=== PATIENT | male | born 1965 | race Caucasian/White ===

== ENCOUNTER 2016-12-22 14:41 | Emergency (ER) | payer MEDICARE, OTHER ==
[~2016-12-22] VITALS: Ht 180.3 cm; Wt 95.9 kg
[~2016-12-22 14:41] MED LIST: DARU400T PO; DIPH-654 PO; GABA-531 PO; LORA1TAB3 PO; MULT1CAP32 PO; PROP10TA72 PO; RITO100C PO; SILD50TA PO; SUMA100T PO; TRUVT PO; VENL-68 PO; VICOT PO
[2016-12-22] MEDS ORDERED: GABA-531 PO (14:50)
[2016-12-22] MEDS ORDERED: HIV PO (14:50)
[2016-12-22] MEDS ORDERED: antihypertensive PO (14:50)
[2016-12-22 16:13] LABS: BASOPHILS % (AUTO) 1.5 % (0.0-2.0); EOSINOPHILS % (AUTO) 4.7 % (1.0-6.0); HEMATOCRIT 40.3 % (41-53); HEMOGLOBIN 13.3 g/dL (13.5-17.5); LYMPHOCYTES # (AUTO) 1.9 K/uL (1.0-4.8); LYMPHOCYTES % (AUTO) 32.5 % (22.0-44.0); MEAN CORPUSCULAR HEMOGLOBIN 27.9 pg (26.0-34.0); MEAN CORPUSCULAR HGB CONC 33.1 G/dL (31.0-37.0); MEAN CORPUSCULAR VOLUME 84 fL (80-100); MONOCYTES # (AUTO) 0.7 K/uL (0.1-1.0); MONOCYTES % (AUTO) 11.8 % (2.0-9.0); NEUTROPHILS # (AUTO) 2.9 K/uL (1.8-7.7); NEUTROPHILS % (AUTO) 49.5 % (40.0-70.0); PLATELET COUNT (AUTO) 436 K/uL (150-450); RED BLOOD CELL COUNT(AUTO) 4.78 MIL/uL (4.50-5.90); RED CELL DISTRIBUTION WIDTH 14.1 % (11.5-14.5); WHITE BLOOD COUNT (AUTO) 5.9 K/uL (4.5-11.0)
[2016-12-22 16:22] LABS: ANION GAP 9 mmol/L (8-16); CARBON DIOXIDE 27 mmol/L (22-29); CHLORIDE 100 mmol/L (98-107); CREATININE 1.01 mg/dL (0.60-1.30); GLOMERULAR FILTR. RATE CALC > 60 mL/min (>60); SODIUM SERUM 136 mmol/L (136-145); UREA NITROGEN, BLOOD 18 mg/dL (7-18)
[2016-12-22 16:41] LABS: INR 1.1 (0.9-1.1); PROTHROMBIN TIME 11.3 SEC (9.4-11.6)
[2016-12-22 16:45] LABS: ALANINE AMINOTRANSFERASE 23 U/L (12-78); ALBUMIN 4.1 g/dL (3.4-5.0); ASPARTATE AMINOTRANSFERASE 16 U/L (15-37); BILIRUBIN,TOTAL 0.3 mg/dL (0.1-1.0); CREATINE KINASE MB 0.8 ng/mL (0-5); CREATINE KINASE, TOTAL 106 U/L (39-308); TOTAL PROTEIN, SERUM 7.5 g/dL (6.4-8.2)
[2016-12-22 17:18] LABS: APPEARANCE,URINE CLEAR (CLEAR); GLUCOSE, URINE (UA) NEGATIVE (NEGATIVE); KETONES,URINE NEGATIVE (NEGATIVE); LEUKOCYTE ESTERASE ,URINE NEGATIVE (NEGATIVE); OCCULT BLOOD,URINE NEGATIVE (NEGATIVE); PROTEIN,URINE NEGATIVE (NEGATIVE)
[2016-12-22 17:21] LABS: ADD UA MICROSCOPIC NO
[2016-12-22 18:02] VITALS: BP 147/96
== END 2016-12-22 18:35 | disposition home or self-care (01) ==
LOC: EMS 14:43
DX: R20.0 Anesthesia of skin (principal); R20.2 Paresthesia of skin; F41.9 Anxiety disorder, unspecified; I10 Essential (primary) hypertension
CPT/HCPCS: 70450; 93005; 99285

== ENCOUNTER 2018-11-22 10:03 | Emergency (ER) | payer MEDICARE, OTHER ==
[~2018-11-22] VITALS: Ht 180.3 cm; Wt 105.5 kg
[~2018-11-22 10:03] MED LIST changes: +HIV PO; +antihypertensive PO
[2018-11-22] MEDS ORDERED: GABA-533 PO (10:43)
[2018-11-22] MEDS ORDERED: OLAN2.5T3 PO (10:43)
[2018-11-22 13:34] VITALS: BP 127/69
== END 2018-11-22 13:35 | disposition home or self-care (01) ==
LOC: EMS 10:07
DX: F41.9 Anxiety disorder, unspecified (principal); I10 Essential (primary) hypertension; G43.909 Migraine, unspecified, not intractable, without status migrainosus; Z79.899 Other long term (current) drug therapy